=== PATIENT | female | born 1930 | race Caucasian/White ===

== ENCOUNTER 2017-01-05 20:06 | Inpatient (IN) | payer MEDICARE ==
[~2017-01-05] VITALS: Ht 162.6 cm; Wt 108.9 kg
[2017-01-05 20:06] VITALS: BP_SYST 125
--- NOTE | 2017-01-05 20:06 | NUR ---
Patient to ER bed 2 to gown for evaluation. Side rails up. Report given to NEGAR MAK.
--- NOTE | 2017-01-05 20:08 | NUR ---
Patient alert, not oriented. Patient is squirming in bed, turning over to left side of bed. paramedics state patient had low BP en route to ER, BP reassessed at bedside. Patient placed on 10 L oxygen due to signs of distress. Patient denies any other complaints.
--- NOTE | 2017-01-05 20:15 | NUR ---
# 18 gauge angiocath placed to right AC. Use of asceptic technique. Blood return noted. Flushed with 10 cc of normal saline. No evidence of infiltration noted. Patient tolerated well.
[2017-01-05] MEDS ORDERED: NS 1000 ML BAG IV ONE (20:30)
--- NOTE | 2017-01-05 20:45 | NUR ---
# 14 FR In and Out catheter with use of sterile technique. No immediate return of urine noted. Will keep catheter in until urine is seen in urine bag. Pt tolerated procedure well.
--- NOTE | 2017-01-05 21:10 | NUR ---
50 mL yellow urine noted to urine bag, urine collected and sent to lab.
[2017-01-05 21:17] LABS: BASOPHILS # (AUTO) 0.1 K/uL (0.0-0.2); BASOPHILS % (AUTO) 0.5 % (0.0-2.0); EOSINOPHILS # (AUTO) 0.1 K/uL (0.0-0.4); EOSINOPHILS % (AUTO) 0.6 % (0.0-4.0); HEMATOCRIT 46.4 % (36-48); HEMOGLOBIN 14.4 g/dL (12.0-16.0); LYMPHOCYTES # (AUTO) 2.1 K/uL (1.0-5.5); LYMPHOCYTES % (AUTO) 17.9 % (20.5-51.5); MEAN CORPUSCULAR HEMOGLOBIN 33 pg (27-31); MEAN CORPUSCULAR HGB CONC 31 % (32-36); MEAN CORPUSCULAR VOLUME 106 fL (79.0-98.0); MONOCYTES # (AUTO) 1.1 K/uL (0.0-1.0); MONOCYTES % (AUTO) 9.5 % (1.7-9.3); NEUTROPHILS # (AUTO) 8.3 K/uL (1.8-7.7); NEUTROPHILS % (AUTO) 71.5 % (40.0-70.0); PLATELET COUNT (AUTO) 182 K/uL (130-430); RED BLOOD CELL COUNT(AUTO) 4.38 MIL/uL (4.2-6.2); RED CELL DISTRIBUTION WIDTH 16.1 % (9.0-15.0); WHITE BLOOD COUNT (AUTO) 11.7 K/uL (4.8-10.8)
[2017-01-05 21:20] LABS: ANION GAP 7 (5-15); CALCIUM 9.4 mg/dL (8.4-11.0); CHLORIDE 111 mmol/L (98-107); CREATININE 5.21 mg/dL (0.55-1.30); GLUCOSE 151 mg/dL (70-99); POTASSIUM 4.6 mmol/L (3.5-5.1); SODIUM SERUM 150 mmol/L (136-145); UREA NITROGEN, BLOOD 78 mg/dL (8-21)
[2017-01-05 21:25] LABS: ALANINE AMINOTRANSFERASE 45 U/L (12-78); ALBUMIN 2.9 g/dL (3.4-4.8); ASPARTATE AMINOTRANSFERASE 82 U/L (10-37); TOTAL BILIRUBIN 0.5 mg/dL (0.0-1.0)
[2017-01-05] MEDS ORDERED: ASPI-1063 PO (21:51)
--- NOTE | 2017-01-05 22:06 | NUR ---
Patient stable, vital signs within therapeutic range. Patient tolerating 6L oxygen via face mask with O2 sat 98%. Will continue to monitor.
[2017-01-05 22:11] LABS: BILIRUBIN,URINE NEGATIVE (NEGATIVE); BLOOD, URINE 2+ (NEGATIVE); CLARITY/URINE HAZY (CLEAR); COLOR,URINE YELLOW (YELLOW); GLUCOSE,URINE NEGATIVE (NEGATIVE); KETONES,URINE NEGATIVE (NEGATIVE); LEUKOCYTE ESTERASE ,URINE 3+ (NEGATIVE); NITRITE, URINE NEGATIVE (NEGATIVE); PH,URINE 6.5 (5.0-8.0); PROTEIN URINE 2+ (NEGATIVE); UROBILINOGEN,URINE 0.2 (0.2-1.0)
[2017-01-05] MEDS ORDERED: ALBUTEROL SULFATE 0.083% 2.5 MG/3 ML VIAL.NEB IH ONE (22:15)
[2017-01-05] MEDS ORDERED: methylPREDNISolone SOD SUCC/PF 62.5 MG/ML VIAL IVP ONE (22:15)
[2017-01-05] MEDS ORDERED: IPRATROPIUM BROM 0.5 MG/2.5 ML VIAL.NEB (ATROVENT) IH ONE (22:15)
[2017-01-05] MEDS ORDERED: MAGNESIUM SULFATE 50 ML IV ONE (22:15)
[2017-01-05] MEDS ORDERED: LOVI40 SQ (22:16)
[2017-01-05] MEDS ORDERED: LIP20 PO (22:16)
[2017-01-05] MEDS ORDERED: NEU300 PO (22:16)
[2017-01-05] MEDS ORDERED: LOSA100T11 PO (22:16)
[2017-01-05] MEDS ORDERED: POTA20TA83 PO (22:16)
[2017-01-05] MEDS ORDERED: PRO40 PO (22:16)
[2017-01-05] MEDS ORDERED: ALLO100T PO (22:16)
[2017-01-05] MEDS ORDERED: METO5TAB8 PO (22:16)
[2017-01-05] MEDS ORDERED: METO25TA6 PO (22:16)
[2017-01-05] MEDS ORDERED: FURO-149 PO (22:16)
[2017-01-05] MEDS ORDERED: FURO-150 PO (22:16)
[2017-01-05] MEDS ORDERED: MONT10TA25 PO (22:16)
[2017-01-05] MEDS ORDERED: TRAM50TA92 PO (22:16)
[2017-01-05] MEDS ORDERED: METO25TA3 PO (22:16)
--- NOTE | 2017-01-05 22:16 | NUR ---
Medication reconciliation completed with information provided by MAYNOR NIEVES. Any prior medication reconciliation on file was reviewed and corrected.
[2017-01-05 22:19] LABS: BACTERIA,URINE MANY /HPF (None Seen); WBC,URINE 80-100 /HPF (0-3)
[2017-01-05 22:21] LABS: OTHER CASTS, URINE 0-2 /LPF (None Seen)
[2017-01-05] MEDS ORDERED: cefTRIAXone 2 GM VIAL ONE (22:42)
--- NOTE | 2017-01-05 23:47 | NUR ---
ADMIT NOTE Received pt from ER to the floor with a diagnosis of acute coronary syndrome. Admission process initiated. patient oriented to pain management, safety and call light-teach back done.
--- NOTE | 2017-01-05 23:50 | NUR ---
Patient will be admitted to care of Dr. Azevedo. Admitted to tele unit. Will go to room 103 B. Belongings list completed. Summary report printed. Report given to admitting RN at bedside.
[2017-01-06] VITALS (7 sets, daily range): BP systolic 71–125
[2017-01-06] MEDS: 0.45% NACL 1,000 ML IV SCH ×2 (00:59→15:18)
[2017-01-06] MEDS ORDERED: LORazepam 2 MG/ML VIAL IVP ONE ×3 (03:15→23:30)
[2017-01-06] MEDS ORDERED: LEVALBUTEROL HCL 0.63 MG/3 ML VIAL.NEB INH PRN (03:15)
[2017-01-06] MEDS ORDERED: methylPREDNISolone SOD SUCC/PF 62.5 MG/ML VIAL IVP ONE ×2 (03:15→11:00)
[2017-01-06] MEDS ORDERED: FUROSEMIDE 40 MG/4 ML VIAL IVP ONE (03:15)
[2017-01-06] MEDS ORDERED: LORazepam 2 MG/ML VIAL ONE ×2 (03:28→15:20)
[2017-01-06] MEDS ORDERED: FUROSEMIDE 40 MG/4 ML VIAL ONE (03:29)
[2017-01-06] MEDS ORDERED: methylPREDNISolone SOD SUCC/PF 62.5 MG/ML VIAL ONE (03:30)
--- NOTE | 2017-01-06 04:55 | NUR ---
YUNIELY CONS: DATE:01-06-17 TIME:0700 REASON FOR CON:RESP FAILURE,BIPAP PHY REQ:DR.GEISE Auguste:[facility]
--- NOTE | 2017-01-06 06:45 | NUR ---
pt.was received@approximately midnight.dtr accompanied the pt.to the room.pt.presnts 1 day of restless body movements, pt.was placed on bi-pap:settings;I/E:12/5,fio-2:35%,resp/rate:14.pt.was not tolerating the bipap. was paged and apprised of the pt's resless affect. ordered ativan:0.5mg ivp x1,solumedrol:40mg ivp x1,lasix;40mg ivp x1,abg's in the am,:pulmo: consult,in the am.pt.had presented quiescent affect post ativan administration pt.breathing rate decreased form the 30-40's to 16-18 bpm.pt.presents somnolent affect.dtr remained @the bedside.iv fluids infusing.diet status remained npo status.hhn ordered:q-4hrs scheduled&q-4hrs prn;sob wheezes.day shift to f/u re:medication reconciliation.call light placed w/in the pt's reach.
--- NOTE | 2017-01-06 07:45 | NUR ---
RN OPENING NOTE PT IS IN BED AND APPEARS TO BE FIGHTING HER BPAP. NEURO IS DIFFICULT TO ASSESS DUE TO THE BPAP AND A LANGUAGE BARRIER, BUT I ASSESSED HER A/O X 1 WITH CONFUSION. I REPOSITIONED HER FOR COMFORT AND SPOKE TO HER CALMLY UNTIL SHE CEASED RESISTING THE BPAP. PT IS ON TELE, CURRENTLY SINUS RHYTHM, WITH NO S/S OF PAIN. IV FLUIDS RUNNING PRESCRIBED IN HER LEFT A/C 22G IV PORT, RIGHT A/C 22G IV PORT CURRENTLY S/L.
[2017-01-06] MEDS: LEVALBUTEROL HCL 0.63 MG/3 ML VIAL.NEB INH SCH ×4 (07:53→19:53)
--- NOTE | 2017-01-06 08:13 | NUR ---
PAGED PAGED MAGDALENA GUTIERREZ AT [phone]LEUNG HOLLINS JONATHAN INSIDE OUTSIDE SALES REPRESENTATIVE.
--- NOTE | 2017-01-06 09:30 | NUR ---
DR. UMANA AT BEDSIDE, NO NEW ORDERS OR BPAP CHANGES
--- NOTE | 2017-01-06 09:45 | NUR ---
DESATURATION EPISODE PT SPO2 DROPPED TO 76%. BPAP PROPERLY FITTED AND FUNCTIONING WNL. I REPOSITIONED HER AND PAGED RT. PT TECHS ASSISTED CONFIRMED BPAP SETTING WERE CORRECT AND WHILE THEY WERE ASSESSING THE PT, THE SATURATION INCREASED TO 92. I UPDATED DR. UMANA WELL DR. HERNANDEZ REGARDING THE EPISODE.
--- NOTE | 2017-01-06 10:35 | NUR ---
DESATURATION EPISODE PT SPO2 DROPPED TO 78%. BPAP PROPERLY FITTED AND FUNCTIONING WNL. THE CHARGE NURSE ASSISTED ME IN REPOSITIONING AND RT ASSISTED US IN ASSESSING THE PT. HER SATUARTION RETURNED TO 88% AFTER A FEW MINUTES.
--- NOTE | 2017-01-06 10:50 | NUR ---
[facility] CATH INSERTED ORDERED URINE SAMPLE COLLECTED
[2017-01-06] MEDS ORDERED: NACL 0.9% 1,000 ML IV ONE (11:00)
--- NOTE | 2017-01-06 11:12 | NUR ---
DR. HERNANDEZ AT BEDSIDE DR HERNANDEZ CALLED THE FAAMILY TO INQUIRE IF THEY WANT THE PT TRANSFERRED TO ICU SHE IS UNSTABLE AND IS FIGHTING THE BPAP.
--- NOTE | 2017-01-06 12:40 | NUR ---
PAGED PAGED LD CORDERO AT [phone] DIRECTLY CONNECTED TO .
[2017-01-06] MEDS ORDERED: cefTRIAXone 1 GM in D5W 50 ML IV SCH (13:00)
--- NOTE | 2017-01-06 14:00 | NUR ---
FAMILY EDUCATION FAMILY AT BEDSIDE, I EDUCATED THEM ON THE PT'S CONDITION AND WENT OVER THE PULSE SHEET IN DETAIL TO ENSURE THE FAMILIES WISHES ARE BEING BEST MET. PT'S DAUGHTER IS SATISFIED.
[2017-01-06] MEDS ORDERED: LORazepam 2 MG/ML VIAL IVP PRN (14:45)
[2017-01-06] MEDS ORDERED: MORPHINE I.V. DRIP 100 ML IV SCH (14:45)
[2017-01-06] MEDS ORDERED: GABAPENTIN 300 MG CAPSULE PO SCH ×2 (15:00)
[2017-01-06] MEDS ORDERED: MORPHINE PCA 50 mg/50 mL NS 50 ML IV ONE (15:19)
--- NOTE | 2017-01-06 16:00 | NUR ---
REPOSITIONED PT, NO SIGN OF DISTRESS
--- NOTE | 2017-01-06 17:30 | NUR ---
RN ROUNDS PT IS RESTING AND APPEARS MUCH MORE COMFORTABLE THAN EARLY TODAY. REPOSITIONED HER FOR COMFORT AND EDUCATED FAMILY ON [facility].
[2017-01-06] MEDS ORDERED: MONTELUKAST 10 MG TABLET PO SCH (18:00)
--- NOTE | 2017-01-06 18:36 | NUR ---
RN CLOSING NOTES PT'S BREATHING IS LESS LABORED THAN EARLY AND SHE APPEARS COMFORTABLE. HER MORPHINE DRIP IS RUNNING AT A CONTINUED RATE OF 4 MG/HOUR PRESCRIBED. BOTH OF HER IV PORTS ARE PATENT, DRESSINGS DRY AND INTACT. PT'S VITALS ARE STABLE AT THE TIME, BIPAP SETTINGS CONFIRMED AT FIO2 35%, E/I RATIO OF 12/5, RATE OF 14. BED IS IN LOWEST POSITION AND CALL LIGHT IS WITHIN REACH THOUGH I DO NOT BELIEVE SHE IS CAPABLE OF USING IT. PT'S FAMILY MEMBERS ARE AT BEDTIME.
--- NOTE | 2017-01-06 19:49 | NUR ---
OPENING NOTE report was endorsed by day nurse at bedside. Patient is on bi pap no signs of distress. Paged respiratory therapist for decrease in oxygen saturation.. Patient has safety precautions in place.Family is at bedside.Call light is with patient. Will continue to monitor.
[2017-01-06] MEDS ORDERED: ATORVASTATIN 20 MG TABLET PO SCH (21:00)
[2017-01-06] MEDS ORDERED: BUDESONIDE 0.5 MG/2 ML AMPUL.NEB INH SCH (21:00)
--- NOTE | 2017-01-06 21:50 | NUR ---
NEGAR MORRIS Addendum: 01/06/17 at 2331 by Gisella Serrato RN Patient is laying in bed, breathing is shallow, no facial grimace, blood pressure with in normal limits. Family is at bed side. Educated family to call me if patient becomes agitated or shows signs of distress. Patient has safety precautions in place. Call light is with patient. Will continue to monitor.
--- NOTE | 2017-01-06 23:02 | NUR ---
Paging Dr. Reyes Patient pulse ox is 73%. Dr. Reyes will be putting in orders will follow through. Patient has safety precautions in place. Patient shows no signs of distress. Patient has Bi pap on. Patient is vp hr diversity. Will continue to monitor. and follow through with new orders.
--- NOTE | 2017-01-06 23:06 | NUR ---
PAGED DR CHISHOLM [phone]
[2017-01-06] MEDS: MORPHINE PCA 50 mg/50 mL NS IV PRN (23:25)
--- NOTE | 2017-01-06 23:27 | NUR ---
morphine drip Increased morphine drip per titration order heart rate is 120/min. Patient has no facial grimace, breathing is shallow and fast. Patient has safety precautions in place. Patient is on secured entrance monitor and bi pap. Will continue to monitor.
--- NOTE | 2017-01-07 00:07 | NUR ---
Scheduled medication Medicated per order. Patient has safety precautions in place. Patient is on him assistant and bi pap. Patients breathing rate slowed down to below 20. no facial grimace present. Will continue to monitor.
[2017-01-07 00:45] VITALS: BP_SYST 73
[2017-01-07] MEDS: IPRATROPIUM/ALBUTEROL SULFATE 3 ML AMPUL.NEB INH PRN ×2 (01:44→03:16)
--- NOTE | 2017-01-07 02:23 | NUR ---
RN rounding Patient appears to be resting with eyes closed. Breathing is still shallow but now labored respiratory rate down to 18/min. Heart rate is with in normal limits. Patient shows no grimace, no signs of distress or discomfort. Patient has safety precautions in place. Patient is close to nurses station will continue to monitor.
[2017-01-07] MEDS ORDERED: IPRATROPIUM/ALBUTEROL SULFATE 3 ML AMPUL.NEB INH SCH (03:00)
[2017-01-07] MEDS: MORPHINE PCA 50 mg/50 mL NS IV PRN ×2 (03:19→10:59)
[2017-01-07 04:03] VITALS: BP_SYST 81
--- NOTE | 2017-01-07 04:15 | NUR ---
RN rounding Patient appears to be resting with no signs of distress breathing is equal and non labored. Patients respiration remain at 18, heart rate is below 100, continued morphine continuos drip at 6mg/hr. Patient has safety precautions in place. Patient is close to nurses station. Will continue to monitor.
--- NOTE | 2017-01-07 06:22 | NUR ---
oxygen saturation desaturation/Rn closing note Respiratory therapist called for patients pulse oxygen desaturation. Able to get pulse ox back to high 80's. Patient breathing is labored, and shallow. Patient remains on morphine drip at 6mg/hr and bi pap is on. Patient has safety precautions in place. will endorse report to oncoming day nurse at bedside. will continue to monitor. in mean time.
[2017-01-07 07:45] VITALS: BP_SYST 112
--- NOTE | 2017-01-07 08:33 | NUR ---
RN OPENING NOTE PT IS IN BED AND IS TOLERATING THE BPAP WITH NO S/S OF DISTRESS. CURRENT SETTINGS: FIO2 50%, I/E AT 12/5, RATE AT 14. VS ARE STABLE ON THE CURRENT MORPHINE CONTINUOUS DRIP AT 6mL/HOUR. NEURO IS DIFFICULT TO ASSESS DUE TO THE BPAP AND A LANGUAGE BARRIER, BUT I ASSESSED HER A/O X 1 WITH CONFUSION. PT IS ON TELE, CURRENTLY SINUS RHYTHM.
[2017-01-07] MEDS ORDERED: ASPIRIN 81 MG TABLET(ECOTRIN) PO SCH (09:00)
[2017-01-07] MEDS ORDERED: ENOXAPARIN SODIUM 30 MG/0.3 ML SYRINGE SUBCUT SCH (09:00)
[2017-01-07] MEDS ORDERED: LOSARTAN POTASSIUM 50 MG TABLET (COZAAR) PO SCH (09:00)
[2017-01-07] MEDS ORDERED: ENOXAPARIN SODIUM 40 MG/0.4 ML SYRINGE SQ SCH (09:00)
[2017-01-07] MEDS ORDERED: PANTOPRAZOLE SODIUM 40 MG TAB PO SCH (09:00)
[2017-01-07] MEDS ORDERED: POTASSIUM CHLORIDE 20 MEQ TAB.PRT.SR PO SCH (09:00)
[2017-01-07] MEDS ORDERED: METOPROLOL SUCCINATE 25 MG TAB.SR.24H (TOPROL XL) PO SCH (09:00)
[2017-01-07] MEDS ORDERED: METOLAZONE 5 MG TABLET PO SCH (09:00)
[2017-01-07] MEDS ORDERED: FUROSEMIDE 40 MG TABLET PO SCH (09:00)
[2017-01-07] MEDS ORDERED: ALLOPURINOL 100 MG TABLET (ZYLOPRIM) PO SCH (09:00)
--- NOTE | 2017-01-07 09:24 | NUR ---
Nutrition Update Ricki Scale 11 noted. Pt admitted for acute coronary syndrome. Diet: N/A BMI: 41.2 kg/m2 RD to follow per nutrition care standards.
--- NOTE | 2017-01-07 10:25 | NUR ---
DR HERNANDEZ AT BEDSIDE/PALLATIVE CARE EDUCATION DR. HERNANDEZ CONFIRMED FAMILY REQUESTS TO HAVE BIPAP REMOVED TODAY. THE FAMILY REQUESTED TO BE ALONE WITH THE PT AND WILL ALERT ME WHEN THEY ARE READY FOR RT TO D/C BIPAP
[2017-01-07] MEDS: LORazepam 2 MG/ML VIAL IVP SCH ×2 (11:24→12:58)
--- NOTE | 2017-01-07 11:43 | NUR ---
RN ROUNDS PT IS RESTING AND APPEARS COMFORTABLE. FAMILY IS STILL AT BEDSIDE AND REQUESTED ADDITIONAL TIME BEFORE WE REMOVE THE BIPAP.
--- NOTE | 2017-01-07 12:40 | NUR ---
BIPAP DISCONTINUED/PALLIATIVE MEASURES PT'S FAMILY IS NOW READY FOR ME TO REMOVE THE bIPAP. CURRENT BP 94/55, HR 87, SPO2 92%
--- NOTE | 2017-01-07 13:00 | NUR ---
PALLIATIVE F/U PT IS BREATHING UNASSISTED, LABORED. BP 92/56, HR 92, SPO2 72%. fAMILY IS AT BEDSIDE
--- NOTE | 2017-01-07 13:25 | NUR ---
Dietitian Recommendations * Consider advance diet if/when medically appropriate LP, RD Please refer to Nutrition Assessment for details.
--- NOTE | 2017-01-07 14:30 | NUR ---
PATIENT PT WITH FAMILY PRESENT. AUGER SUPERVISOR NURSE HELGA AND RN ADAL PRONOUNCED PT AT 1430. [facility] CONTACTED, AND THEY DECLINED THE PT A DONOR DUE TO HER AGE (CASE# [id number]). ATTENDING PHYSICIAN DR LD HERNANDEZ NOTIFIED, AND HE AGREED TO SIGN THE CERTIFICATE.
--- NOTE | 2017-01-07 14:30 | NUR ---
pronouncement of late entry due to patient care Called to the room by NEGAR Eli. Patient is unresponsive to tactile stimuli, no rise and fall of chest, pupil fixed and dilated, absence of apical pulse. Patient is flat line on the monitor. Patient was pronounced by clinical trials manager and Dusty RN. Family at bedside.
--- NOTE | 2017-01-07 14:50 | NUR ---
FAMILY CONSOLING/POST-MORTEM CARE FAMILY WISHES TO REMAIN AT BEDSIDE DURING POST-MORTEM CARE, AND WE INVITED THEM TO ASSIST COMFORTABLE PER THEIR REQUEST. FAMILY ENCOURAGED TO [employer] AND THEN I ALLOWED THEM TO GRIEVE IN PEACE: I RECOMMENDED THE QUIET ROOM A PLACE OF REFUGE.
--- NOTE | 2017-01-07 16:40 | NUR ---
PT TRANSPORTED TO [facility] FAMILY WAS PRESENT AT TIME AND WERE EDUCATED BY MYSELF WELL THE [facility] REPRESENTATIVES.
== END 2017-01-07 14:30 | disposition expired | DRG 177 ==
LOC: SED 20:06 → STU 23:29 → SMU 01-07 10:07
PROVIDERS: ADMIT Family Medicine; ATTEND Family Medicine
PROC: 5A09457 Assistance with Respiratory Ventilation, 24-96 Consecutive Hours, Continuous Positive Airway Pressure (ICD-10-PCS; principal; 2017-01-05)
DX: J69.0 Pneumonitis due to inhalation of food and vomit (principal); J96.20 Acute and chronic respiratory failure, unspecified whether with hypoxia or hypercapnia; I46.9 Cardiac arrest, cause unspecified; E43 Unspecified severe protein-calorie malnutrition; E87.0 Hyperosmolality and hypernatremia; Z68.41 Body mass index [BMI] 40.0-44.9, adult; I24.9 Acute ischemic heart disease, unspecified; I13.0 Hypertensive heart and chronic kidney disease with heart failure and stage 1 through stage 4 chronic kidney disease, or unspecified chronic kidney disease; J98.11 Atelectasis; E66.2 Morbid (severe) obesity with alveolar hypoventilation; N39.0 Urinary tract infection, site not specified; Z66 Do not resuscitate; R26.81 Unsteadiness on feet; M62.81 Muscle weakness (generalized); J44.9 Chronic obstructive pulmonary disease, unspecified; M10.9 Gout, unspecified; Z51.5 Encounter for palliative care; E78.5 Hyperlipidemia, unspecified; N18.9 Chronic kidney disease, unspecified; G62.9 Polyneuropathy, unspecified; I50.9 Heart failure, unspecified; K21.9 Gastro-esophageal reflux disease without esophagitis; Z79.899 Other long term (current) drug therapy; Z79.82 Long term (current) use of aspirin
CPT/HCPCS: 36415; 36600; 70450-TC; 71010; 71250-TC; 80053; 81000-TC; 82803-TC; 83605; 83880; 84484; 85025; 87040-TC; 87081; 87086; 93005; 93306; 94640; 94660; 94760; 96361; 96365; 96368; 96375; 99285; J0696; J1940; J2060; J2270; J2930; J3475; J7030; J7060